=== PATIENT | male | born 1980 | race African-American/Black ===

== ENCOUNTER 2017-08-22 11:57 | Emergency (ER) | payer MEDICAID ==
[~2017-08-22] VITALS: Ht 185.4 cm; Wt 91.0 kg
[2017-08-22 13:19] LABS: EOSINOPHILS % 0.9 % (0.0-5.0); HEMATOCRIT. 39.6 % (42.0-52.0); HEMOGLOBIN. 13.6 g/dL (14.0-18.0); LYMPHOCYTES % 25.6 % (20.0-50.0); MEAN CORPUSCULAR VOLUME 90.2 fL (80.0-94.0); MEAN PLATELET VOLUME 7.3 fl (7.4-10.4); MONOCYTES % 8.7 % (2.0-8.0); NEUTROPHILS % 63.8 % (40.0-76.0); PLATELET 207 x1000/uL (130-400); RED BLOOD CELL COUNT 4.39 mill/uL (4.7-6.1); RED CELL DISTRIBUTION WIDTH 14.6 % (11.6-14.6)
[2017-08-22 13:34] LABS: CARBON DIOXIDE 30 mEq/L (21-32); CHLORIDE 104 mEq/L (98-107)
[2017-08-22 14:16] VITALS: BP 139/84
== END 2017-08-22 14:18 | disposition home or self-care (01) ==
LOC: ER 13:05
DX: K62.5 Hemorrhage of anus and rectum (principal); F17.290 Nicotine dependence, other tobacco product, uncomplicated; F12.10 Cannabis abuse, uncomplicated
CPT/HCPCS: 36415; 80053; 85025; 86850; 86900; 99284

== ENCOUNTER 2017-09-09 10:22 | Emergency (ER) | payer SELFPAY ==
[~2017-09-09] VITALS: Ht 193 cm; Wt 91.0 kg
[2017-09-09] MEDS ORDERED: HYDROCODONE/ACETAMINOPHEN 5/325MG TABLET PO ONE (11:00)
[2017-09-09 13:00] VITALS: BP 120/74
== END 2017-09-09 13:45 | disposition home or self-care (01) ==
LOC: ER 10:22
DX: M25.562 Pain in left knee (principal); F12.10 Cannabis abuse, uncomplicated
CPT/HCPCS: 73562; 93970; 99284; L1830